=== PATIENT | female | born 1980 | race American Indian/Alaskan Native ===

== ENCOUNTER 2021-08-15 08:19 | Day surgery (SDC) | payer MEDICAID ==
[~2021-08-15 08:19] MED LIST: SODIUM CHLORIDE 0.9% 1000 ML 1,000 ML IV SCH
--- NOTE | 2021-08-15 09:42 | Discharge Summary ---
Providers - Providers Date of Admission: 08/15/2021 Date of discharge: 08/15/21 Attending physician: CINDI SUNSHINE MD Primary care physician: ANKITA PAYNE Hospitalization Reason for admission: pre-op planning egd Condition: Good Procedures: egd with bx Hospital course: Pt presented for a pre-op EGD as part of planning for up coming bariatric surgery. Procedure was uneventful and pt recovered well and was discharged to home. Disposition: 01 HOME / SELF CARE / HOMELESS Final Discharge Diagnosis (Prints w/discharge instructions): gerd, morbid obesity Core Measure Documentation - Palliative Care Palliative Care/ Comfort Measures: Not Applicable - Core Measures Any of the following diagnoses?: none Exam - Physical Exam Narrative exam: unchanged from pre-op Plan Activity: advance as tolerated Diet: low carbohydrate Follow up with: ANKITA PAYNE JR, MD [Primary Care Provider] - 7 Days
--- NOTE | 2021-08-15 09:45 | Operative Report ---
Operative Report Operative Report: DATE: 08/15/2021 SURGERY: Upper endoscopy. SURGEON: Jorgito Duong M.D. PROCEDURE: EGD with biopsy PRE OP DX: GERD, hx of bariatric surgery POST OP DX: same as pre-op TYPE OF ANESTHESIA: MAC. ESTIMATED BLOOD LOSS: None. COMPLICATIONS: None. SPECIMENS REMOVED: antral biopsy FINDINGS: 1. Small hiatal hernia. 2. Otherwise, normal esophagus, stomach and first portion of duodenum. INDICATIONS:INDICATION FOR PROCEDURE: Patient is a 41-year-old female with a long history of gastric sleeve and subsequent worsening reflux since her surgery. She is here today for pre-op egd in anticipation for converting to gastric bypass which is an anti-refux procedure. PROCEDURE DETAILS: After consent was reviewed, patient was taken back to the operating room where patient was placed in the left lateral decubitus position and a bite block was placed in the mouth. After a time-out was called, MAC anesthesia was initiated. I then passed the endoscope into her oropharynx, into her esophagus, visualized the entire esophagus, which was all within normal limits. Z-line was noted to about 35 cm from incisors. There was noted to be a small hiatal hernia approximately 1 to 2 cm in length. The stomach was noted to be appropriately narrow consistent with history of sleeve gastrectomy. There were no obstruction points along the stomach. I then visualized the stomach and the first portion of the duodenum and there were no abnormalities I could clearly visualize except for antral gastritis. A cold forceps biopsy of the antrum was taken and will be sent to pathology to evaluate for H.pylori. The scope could not be retroflexed due to the narrowed stomach. I then desufflated the stomach and removed the endoscope. Patient tolerated procedure well and was transferred to recovery room in good and stable condition.
[2021-08-15] MEDS ORDERED: LIDOCAINE MPF (2%) 20 MG/1 ML VIAL 5 ML ONE (10:18)
[2021-08-15] MEDS ORDERED: propofoL 200 MG/20 ML VIAL IV ONE ×2 (10:19→11:05)
[2021-08-15] MEDS ORDERED: MIDAZOLAM 2 MG/2 ML INJ ONE (10:19)
--- NOTE | 2021-08-15 10:53 | Anesthesia Consultation ---
Anesthesia Consult and Med Hx Date of service: 08/15/21 - Airway Anesthetic Teeth Evaluation: Good ROM Head & Neck: Adequate Mental/Hyoid Distance: Adequate Mallampati Class: Class II Intubation Access Assessment: Good - Pulmonary Exam CTA: Yes - Cardiac Exam Cardiac Exam: RRR - Pre-Operative Health Status ASA Pre-Surgery Classification: ASA3 Proposed Anesthetic Plan: MAC - Pulmonary Hx Sleep Apnea: Yes - Other Systems Hx Obesity: Yes
--- NOTE | 2021-08-15 10:53 | Anesthesia Day of Surgery ---
Anesthesia Day of Surgery - Day of Surgery Patient Examined: Yes Patient H&P Reviewed: Yes Patient is NPO: Yes
--- NOTE | 2021-08-15 12:23 | Post Anesthesia Evaluation ---
- Post Anesthesia Evaluation Patient Participated: Yes Airway Patent: Yes Stable Respiratory Function: Yes Nausea/Vomiting: No Temp > 96.8F: Yes Pain Manageable: Yes Adequeate Hydration: Yes Anesthesia Complications: Yes Block Receding Appropriately: Not Applicable Patient on Ventilator: No
[2021-08-15 17:25] VITALS: BP 130/70
== END 2021-08-15 08:20 | disposition home or self-care (01) ==
LOC: GIO 08:19
PROVIDERS: ATTEND Surgery
DX: K21.9 Gastro-esophageal reflux disease without esophagitis (principal); K44.9 Diaphragmatic hernia without obstruction or gangrene; K31.89 Other diseases of stomach and duodenum; K29.50 Unspecified chronic gastritis without bleeding; G47.30 Sleep apnea, unspecified; E66.9 Obesity, unspecified; Z79.899 Other long term (current) drug therapy; Z98.890 Other specified postprocedural states
CPT/HCPCS: 43239; 88305; 88342; J2250; J2704; J3490; J7030; J7120; Q0162

== ENCOUNTER 2021-08-16 11:00 | Outpatient (CLI) | payer MEDICAID | END 2021-08-16 11:01 | disposition home or self-care (01) | LOC: SLR 11:00 | PROVIDERS: ATTEND Surgery | DX: G47.30 Sleep apnea, unspecified (principal) | CPT/HCPCS: G0399 ==